=== PATIENT | female | born 1980 | race African-American/Black ===

== ENCOUNTER 2016-10-29 14:35 | Emergency (ER) | payer OTHER ==
[~2016-10-29] VITALS: Ht 165.1 cm; Wt 97.5 kg
--- NOTE | ~2016-10-29 | EKG ---
[address] [address] ELECTROCARDIOGRAM REPORT Name: JEFFREY GLORIA [id number] Admission: 10/29/16 Attend Phys: Discharge: 10/29/16 Date of : 76 Report #: [id number] THIS REPORT FOR: //name// [facility] ED Test Date: 2016-10-29 Test Time: 15:20:22 Pat Name: JEFFREY GLORIA Department: Room: Gender: F Hatch Boss: Humaira BLANCAS : 1980 Requested By: Jean Gonzales Order Number: [id number] MD: Jamal Padilla Measurements Intervals [place] Rate: 78 P: 58 MO: 144 QRS: 21 QRSD: 83 T: 38 QT: 394 QTc: 449 Interpretive Statements Sinus rhythm Normal tracing Compared to ECG 07/16/2014 18:02:22 No significant changes Electronically Signed On 10-30-2016 8:12:06 CDT by Jamal Padilla [email or web address] <ELECTRONICALLY SIGNED> By: Jamal Padilla MD, [facility] 10/30/16 0812 1520 1520 Jamal Padilla MD, FACC /EPI
[~2016-10-29 14:35] MED LIST: AMOXICILLIN875 MG PO; CIPROFLOXACIN500 M1 PO; CLARITIN10 MG PO; COLACE100 MG PO; GREEN TEA; IBUPROFEN 400400 M1 PO; IMITREX PO; KEFLEX500 MG PO; LORTAB PO; LUPRON IM; MAXALT MLT ODT10 M1 PO; NAPROSYN500 MG PO; NORCO 5-325 TA1 EACH PO; NORFLEX100 MG PO; PREDNISONE 20 M20 M1 PO; PREDNISONE 20 M20 MG PO; PROGESTERONE100 MG PO; PYRIDIUM200 MG PO; ULTRAM 50MG TAB50 MG PO; VALIUM5 MG PO; VENTOLIN HFA 1818 GM INH; VIVELLE1 EAC1; ZANTAC 150MG T150 M1 PO
[2016-10-29] MEDS ORDERED: NORCO 7.5-3251 EACH PO (14:42)
[2016-10-29 15:23] LABS: ABSOLUTE NEUTROPHILS 4.8 thou/uL (1.4-8.2); BASOPHILS 0.8 % (0.0-2.0); EOSINOPHILS 3.1 % (0.0-3.0); HEMATOCRIT 41.8 % (37.0-47.0); HEMOGLOBIN 14.5 gm/dL (12.0-15.0); LYMPHOCYTES 22.9 % (24.0-44.0); MCHC 34.6 g/dL (28.0-37.0); MCV 83.7 fL (80.0-100.0); MONOCYTES 5.7 % (1.0-8.0); PLATELET COUNT 262 thou/uL (150-400); POLYS 67.5 % (36.0-66.0); RBC 4.99 mil/uL (4.20-5.00); RDW 13.5 % (10.5-14.5); WBC 7.1 thou/uL (4.0-11.0)
[2016-10-29 15:24] LABS: MANUAL DIFF NO
[2016-10-29 15:27] LABS: CALCIUM 8.6 mg/dL (8.5-10.1); CREATININE 1.1 mg/dL (0.6-1.0); POTASSIUM 3.6 mmol/L (3.5-5.1)
[2016-10-29 15:33] LABS: ALBUMIN 3.7 g/dL (3.4-5.0); TOTAL BILIRUBIN 0.4 mg/dL (<0.1-1.0); TOTAL PROTEIN 8.4 g/dL (6.4-8.2)
[2016-10-29 16:16] VITALS: BP 107/64
== END 2016-10-29 16:18 | disposition home or self-care (01) ==
LOC: ER 14:35
PROVIDERS: Physician Assistant
DX: R42 Dizziness and giddiness (principal); G40.909 Epilepsy, unspecified, not intractable, without status epilepticus; J45.909 Unspecified asthma, uncomplicated; G43.909 Migraine, unspecified, not intractable, without status migrainosus; Z98.890 Other specified postprocedural states